=== PATIENT | male | born 1960 | race African-American/Black ===

== ENCOUNTER 2017-11-14 06:30 | Inpatient (IN) | payer SELFPAY ==
[~2017-11-14] VITALS: Ht 172.7 cm; Wt 83.0 kg
[2017-11-14] VITALS (56 sets, daily range): BP systolic 134–191; BP diastolic 67–155
[2017-11-14] MEDS ORDERED: METHYLPREDNISOLONE SOD SUCC 125 MG/2 ML VIAL IV STA (06:41)
[2017-11-14] MEDS ORDERED: ALBUTEROL (0.083%) 2.5MG/3ML NEB HHN STA (06:41)
[2017-11-14] MEDS ORDERED: IPRATROPIUM BROMIDE (0.02%) 0.5MG/2.5ML NEB HHN STA (06:41)
[2017-11-14] MEDS ORDERED: MAGNESIUM 2 G PREMIX 50 ML IV STA (06:41)
[2017-11-14] MEDS ORDERED: FUROSEMIDE 20MG/2ML VIAL IVP ONE ×2 (06:45→07:15)
[2017-11-14] MEDS ORDERED: METHYLPREDNISOLONE SOD SUCC 125 MG/2 ML VIAL IV ONE (07:15)
[2017-11-14 07:34] LABS: INR 1.5; PARTIAL THROMBOPLASTIN TIME 25.7 sec (23.4-31.0); PROTHROMBIN TIME 15.1 sec (9.4-11.6)
[2017-11-14 07:42] LABS: CHLORIDE 104 mEq/L (98-107); ETHANOL BLOOD < 10 mg/dL
[2017-11-14 07:48] LABS: HEMATOCRIT. 35.5 % (42.0-52.0); HEMOGLOBIN. 10.6 g/dL (14.0-18.0); MEAN CORPUSCULAR HEMOGLOBIN 27.1 pg (28.0-32.0); MEAN PLATELET VOLUME 7.9 fl (7.4-10.4); PLATELET 488 x1000/uL (130-400); RED BLOOD CELL COUNT 3.91 mill/uL (4.7-6.1); RED CELL DISTRIBUTION WIDTH 20.1 % (11.6-14.6); TROPONIN I 0.11 ng/mL (0.00-0.04)
[2017-11-14] MEDS ORDERED: DEXTROSE 50% WATER 50ML SYRINGE IV ONE ×2 (07:54→08:00)
[2017-11-14] MEDS ORDERED: LEVOFLOXACIN 750MG PREMIX 150 ML IV ONE (08:00)
[2017-11-14 08:11] LABS: BG BASE EXCESS -13.6 mmol/L (-2.0-2.0); BG CARBOXYHEMOGLOBIN 0.8 % (0.5-1.5); BG DEOXYHEMOGLOBIN 0.9 % (0.0-5.0); BG FRACTION INSPIRED OXYGEN 40; BG HCO3 ACT 13.3 mmol/L (22.0-26.0); BG METHEMOGLOBIN 0.3 % (0.0-1.5); BG OXYGEN SATURATION 99.1 % (92.0-98.5); BG PCO2 34.4 mmHg (35.0-45.0); BG PH 7.204 (7.350-7.450); BG PO2 219.8 mmHg (75.0-100.0); BG SAMPLE SITE RIGHT RADIAL; BG TOTAL HEMOGLOBIN 10.6 g/dL (12.0-18.0); BG VENT MODE MASK - BIPAP
[2017-11-14 08:15] LABS: NUCLEATED RED BLOOD CELLS 1 /100 WBC
[2017-11-14 08:16] LABS: PLATELET ESTIMATE INCREASED
[2017-11-14 08:35] LABS: CLARITY URINE CLEAR (CLEAR); COLOR URINE YELLOW (YELLOW); KETONES URINE NEGATIVE (NEGATIVE); LEUKOCYTE ESTERASE URINE NEGATIVE (NEGATIVE); NITRITE URINE NEGATIVE (NEGATIVE); OCCULT BLOOD URINE TRACE (NEGATIVE); PROTEIN URINE 2+ (NEGATIVE); SPECIFIC GRAVITY URINE 1.015 (1.005-1.030)
[2017-11-14 09:13] LABS: *AMPHETAMINES SCREEN URINE NEGATIVE (NEGATIVE); *BARBITURATES SCREEN URINE NEGATIVE (NEGATIVE); *BENZODIAZEPINES SCREEN URINE NEGATIVE (NEGATIVE); *COCAINE SCREEN URINE NEGATIVE (NEGATIVE); CANNABINOID URINE SCREEN NEGATIVE (NEGATIVE); METHADONE URINE SCREEN NEGATIVE (NEGATIVE); OPIATES URINE SCREEN NEGATIVE (NEGATIVE); PHENCYCLIDINE URINE SCREEN NEGATIVE (NEGATIVE)
[2017-11-14] MEDS ORDERED: SODIUM BICARBONATE 8.4% 1 MEQ/ML 50ML SYR IV ONE (09:15)
[2017-11-14] MEDS ORDERED: METRONIDAZOLE 500 MG PREMIX 100 ML IV ONE (09:15)
[2017-11-14] MEDS ORDERED: IPRATROPIUM/ALBUTEROL 0.5-3(2.5)MG/3ML NEB HHN PRN (09:30)
[2017-11-14] MEDS ORDERED: DEXTROSE 50% WATER 50ML SYRINGE IV PRN ×2 (09:30)
[2017-11-14] MEDS ORDERED: DEXT 5%/0.45% NACL 1000ML 1,000 ML IV SCH ×2 (09:49→19:00)
[2017-11-14] MEDS ORDERED: KETOROLAC 30MG/ML VIAL IV PRN (10:00)
[2017-11-14] MEDS ORDERED: ENOXAPARIN 40MG/0.4ML SYR SUBCUT SCH (10:00)
[2017-11-14] MEDS ORDERED: IPRATROPIUM/ALBUTEROL 0.5-3(2.5)MG/3ML NEB INH PRN (10:00)
[2017-11-14] MEDS ORDERED: ONDANSETRON HCL 4MG/2ML VIAL IV PRN (10:00)
[2017-11-14] MEDS ORDERED: NA PHOS,M-B/NA PHOS,DI-BA ENEMA 118ML PR PRN (10:00)
[2017-11-14] MEDS ORDERED: VANCOMYCIN 1 G PREMIX 200 ML IV SCH (10:00)
[2017-11-14] MEDS ORDERED: ACETAMINOPHEN 325MG TABLET PO PRN (10:00)
[2017-11-14] MEDS ORDERED: MAGNESIUM/ALUMINUM HYDROXIDE/SIMETHICONE 30ML UDC PO PRN (10:00)
[2017-11-14] MEDS ORDERED: DOCUSATE SODIUM 100MG CAPSULE PO PRN (10:00)
[2017-11-14] MEDS ORDERED: LORAZEPAM 0.5MG TABLET PO PRN (10:15)
[2017-11-14] MEDS ORDERED: DEXTROSE 10% WATER 500 ML IV ONE (10:30)
[2017-11-14] MEDS: PANTOPRAZOLE SODIUM 40 MG/VIAL IV SCH (10:34)
[2017-11-14] MEDS: ENOXAPARIN 30MG/0.3ML SYR SUBCUT SCH ×2 (10:34→20:50)
[2017-11-14] MEDS: NITROGLYCERIN 50MG PREMIX 250 ML IV PRN ×2 (10:35→15:36)
[2017-11-14] MEDS ORDERED: MVI, ADULT NO.1 10 ML, FOLIC ACID 1 MG, THIAMINE HCL 100 MG in SODIUM CHLORIDE 0.9% 1,0... IV SCH ×4 (11:00)
[2017-11-14] MEDS ORDERED: VANCOMYCIN 2,000 MG in SODIUM CHLORIDE 0.9% 500 ML IV SCH (11:30)
[2017-11-14 11:59] LABS: AMMONIA 51 uMol/L (<32)
[2017-11-14] MEDS ORDERED: IPRATROPIUM/ALBUTEROL 0.5-3(2.5)MG/3ML NEB HHN SCH (12:00)
[2017-11-14 12:18] LABS: HEPATITIS B SURFACE ANTIGEN NEGATIVE
[2017-11-14 12:26] LABS: BG BASE EXCESS -4.5 mmol/L (-2.0-2.0); BG BILEVEL POS AIRWAY PRESSURE 15/5; BG CARBOXYHEMOGLOBIN 0.6 % (0.5-1.5); BG DEOXYHEMOGLOBIN 4.9 % (0.0-5.0); BG HCO3 ACT 19.7 mmol/L (22.0-26.0); BG METHEMOGLOBIN 0.3 % (0.0-1.5); BG OXYGEN SATURATION 95.1 % (92.0-98.5); BG OXYHEMOGLOBIN 94.2 % (94.0-97.0); BG PCO2 33.2 mmHg (35.0-45.0); BG PH 7.391 (7.350-7.450); BG PO2 83.4 mmHg (75.0-100.0); BG SAMPLE SITE RIGHT RADIAL; BG TOTAL HEMOGLOBIN 10.3 g/dL (12.0-18.0); BG VENT MODE MASK - BIPAP; BG VENT RATE 12 set
[2017-11-14] MEDS: PIPERACILLIN/TAZ 3.375G PREMIX 50 ML IV SCH ×2 (12:30→18:37)
[2017-11-14 12:46] LABS: HEPATITIS B CORE AB IGM NEGATIVE
[2017-11-14 12:47] LABS: HEPATITIS A AB IGM NEGATIVE (NEGATIVE)
[2017-11-14] MEDS: BLOOD SUGAR DIAGNOSTIC STRIP TEST SCH ×3 (12:50→21:12)
[2017-11-14] MEDS ORDERED: LIDOCAINE HCL/PF 1% 2ML VIAL ONE (13:01)
[2017-11-14] MEDS: ENALAPRIL 1.25MG/ML VIAL 1ML IV SCH ×3 (13:16→23:35)
[2017-11-14] MEDS: INSULIN LISPRO 100 UNITS/ML SUBCUT SCH ×3 (13:16→21:16)
[2017-11-14] MEDS: LABETALOL 5MG/ML SYR 20 MG/4 ML SYRINGE IV SCH ×2 (13:38→23:35)
[2017-11-14] MEDS ORDERED: CLONIDINE HCL 0.1MG/24HR PATCH TD SCH (14:00)
[2017-11-14] MEDS ORDERED: SPIR25TA4 PO (14:27)
[2017-11-14] MEDS ORDERED: METF500T4 PO (14:27)
[2017-11-14] MEDS ORDERED: CARV25TA47 PO (14:27)
[2017-11-14] MEDS ORDERED: ESOM40CA PO (14:27)
[2017-11-14] MEDS ORDERED: MULT-1146 PO (14:27)
[2017-11-14] MEDS ORDERED: FOLI-43 PO (14:27)
[2017-11-14] MEDS ORDERED: FERR325T6 PO (14:27)
[2017-11-14] MEDS ORDERED: POTA10TA15 PO (14:27)
[2017-11-14] MEDS ORDERED: DIGO125T82 PO (14:27)
[2017-11-14] MEDS ORDERED: LISI10TA5 PO (14:27)
[2017-11-14] MEDS: IPRATROPIUM/ALBUTEROL 0.5-3(2.5)MG/3ML NEB HHN SCH ×4 (14:41→23:44)
[2017-11-14] MEDS ORDERED: HYDRALAZINE 20MG/ML VIAL IV PRN (14:45)
[2017-11-14] MEDS: CLONIDINE 0.1MG TABLET PO PRN (15:36)
[2017-11-14 16:36] LABS: CREATINE KINASE MB FRACTION 4.2 ng/mL (0.5-3.6); TROPONIN I 0.11 ng/mL (0.00-0.04)
[2017-11-14] MEDS: FUROSEMIDE 40MG/4ML VIAL IVP SCH (17:45)
[2017-11-14 18:34] LABS: TOTAL IRON BINDING CAPACITY 410 ug/dL (250-450)
[2017-11-14 20:20] LABS: VITAMIN B12 SERUM 1694 pg/mL (211-911)
[2017-11-14 20:21] LABS: FOLIC ACID (FOLATE) SERUM > 20.00 ng/mL (>5.38)
[2017-11-14] MEDS ORDERED: VANCOMYCIN 1250MG in DEXTROSE 5% WATER 250ML IV SCH (23:00)
[2017-11-14 23:19] LABS: CREATINE KINASE MB FRACTION 3.7 ng/mL (0.5-3.6); TROPONIN I 0.12 ng/mL (0.00-0.04)
[2017-11-15] VITALS (52 sets, daily range): BP systolic 112–159; BP diastolic 67–102
[2017-11-15] MEDS: PIPERACILLIN/TAZ 3.375G PREMIX 50 ML IV SCH ×3 (02:32→18:11)
[2017-11-15] MEDS: IPRATROPIUM/ALBUTEROL 0.5-3(2.5)MG/3ML NEB HHN SCH ×5 (04:11→20:36)
[2017-11-15] MEDS: ENALAPRIL 1.25MG/ML VIAL 1ML IV SCH ×2 (05:38→12:43)
[2017-11-15] MEDS: LABETALOL 5MG/ML SYR 20 MG/4 ML SYRINGE IV SCH ×3 (05:38→12:43)
[2017-11-15] MEDS: BLOOD SUGAR DIAGNOSTIC STRIP TEST SCH ×4 (07:50→21:08)
[2017-11-15] MEDS: FUROSEMIDE 40MG/4ML VIAL IVP SCH ×2 (08:16→17:45)
[2017-11-15] MEDS: PANTOPRAZOLE SODIUM 40 MG/VIAL IV SCH (08:16)
[2017-11-15] MEDS: ENOXAPARIN 30MG/0.3ML SYR SUBCUT SCH ×2 (08:17→20:50)
[2017-11-15] MEDS: INSULIN LISPRO 100 UNITS/ML SUBCUT SCH ×4 (08:18→21:12)
[2017-11-15] MEDS ORDERED: LEVOFLOXACIN 500MG PREMIX 100 ML IV SCH (09:00)
[2017-11-15 09:17] LABS: BG BASE EXCESS 0.9 mmol/L (-2.0-2.0); BG DEOXYHEMOGLOBIN 2.3 % (0.0-5.0); BG FRACTION INSPIRED OXYGEN 28; BG HCO3 ACT 24.5 mmol/L (22.0-26.0); BG METHEMOGLOBIN 0.2 % (0.0-1.5); BG OXYGEN SATURATION 97.7 % (92.0-98.5); BG OXYHEMOGLOBIN 96.5 % (94.0-97.0); BG PCO2 34.9 mmHg (35.0-45.0); BG PH 7.464 (7.350-7.450); BG PO2 106.5 mmHg (75.0-100.0); BG SAMPLE SITE RIGHT RADIAL; BG TOTAL HEMOGLOBIN 9.9 g/dL (12.0-18.0); BG VENT MODE MASK - VENTI
[2017-11-15] MEDS: VANCOMYCIN 1500MG in DEXTROSE 5% WATER 250ML IV SCH ×2 (10:13→20:51)
[2017-11-15] MEDS: LISINOPRIL 20MG TABLET PO SCH (20:50)
[2017-11-15] MEDS: METOPROLOL TARTRATE 25MG TABLET PO SCH (20:51)
[2017-11-16] VITALS (26 sets, daily range): BP systolic 113–172; BP diastolic 34–115
[2017-11-16] MEDS: IPRATROPIUM/ALBUTEROL 0.5-3(2.5)MG/3ML NEB HHN SCH ×6 (01:05→20:43)
[2017-11-16] MEDS: PIPERACILLIN/TAZ 3.375G PREMIX 50 ML IV SCH ×3 (02:19→18:17)
[2017-11-16 06:42] LABS: BASOPHILS % 0.1 % (0.0-2.0); HEMATOCRIT. 28.5 % (42.0-52.0); HEMOGLOBIN. 9.2 g/dL (14.0-18.0); LYMPHOCYTES % 10.1 % (20.0-50.0); MEAN CORPUSCULAR HEMOGLOBIN 27.4 pg (28.0-32.0); MEAN CORPUSCULAR VOLUME 85.5 fL (80.0-94.0); MEAN PLATELET VOLUME 7.9 fl (7.4-10.4); MONOCYTES % 12.3 % (2.0-8.0); NEUTROPHILS % 77.5 % (40.0-76.0); PLATELET 297 x1000/uL (130-400); RED BLOOD CELL COUNT 3.34 mill/uL (4.7-6.1); RED CELL DISTRIBUTION WIDTH 19.7 % (11.6-14.6)
[2017-11-16 07:19] LABS: CHLORIDE 99 mEq/L (98-107)
[2017-11-16] MEDS: BLOOD SUGAR DIAGNOSTIC STRIP TEST SCH ×4 (08:09→21:59)
[2017-11-16] MEDS: FUROSEMIDE 40MG/4ML VIAL IVP SCH ×2 (08:37→17:37)
[2017-11-16] MEDS: PANTOPRAZOLE SODIUM 40 MG/VIAL IV SCH (08:37)
[2017-11-16] MEDS: FOLIC ACID 1MG TABLET PO SCH (08:38)
[2017-11-16] MEDS: MULTIVITAMINS,THER W-MINERALS TABLET PO SCH (08:38)
[2017-11-16] MEDS: METOPROLOL TARTRATE 25MG TABLET PO SCH ×2 (08:38→21:10)
[2017-11-16] MEDS: THIAMINE HCL 100MG TABLET PO SCH (08:38)
[2017-11-16] MEDS: LISINOPRIL 20MG TABLET PO SCH ×2 (08:38→21:10)
[2017-11-16] MEDS: ENOXAPARIN 30MG/0.3ML SYR SUBCUT SCH ×2 (08:39→21:10)
[2017-11-16] MEDS: VANCOMYCIN 1500MG in DEXTROSE 5% WATER 250ML IV SCH (08:39)
[2017-11-16] MEDS: INSULIN LISPRO 100 UNITS/ML SUBCUT SCH ×4 (08:40→21:11)
[2017-11-16] MEDS: CLONIDINE 0.1MG TABLET PO PRN (08:50)
[2017-11-16] MEDS ORDERED: POTASSIUM CHLORIDE 20MEQ TABLET SR PO NR (09:30)
[2017-11-16 09:44] LABS: AMMONIA 36 uMol/L (<32)
[2017-11-16] MEDS: DILTIAZEM HCL 30MG TABLET PO SCH ×3 (15:00→23:46)
[2017-11-16] MEDS: VANCOMYCIN 1 G PREMIX 200 ML IV SCH (21:09)
[2017-11-16] MEDS: GUAIFENESIN 200MG/10ML SUGAR FREE UDC PO PRN (22:02)
[2017-11-17] VITALS (26 sets, daily range): BP systolic 104–159; BP diastolic 18–109
[2017-11-17] MEDS: IPRATROPIUM/ALBUTEROL 0.5-3(2.5)MG/3ML NEB HHN SCH ×6 (00:08→21:02)
[2017-11-17] MEDS: PIPERACILLIN/TAZ 3.375G PREMIX 50 ML IV SCH ×3 (03:15→18:14)
[2017-11-17] MEDS: DILTIAZEM HCL 30MG TABLET PO SCH ×2 (05:34→11:54)
[2017-11-17] MEDS: BLOOD SUGAR DIAGNOSTIC STRIP TEST SCH ×4 (07:23→20:42)
[2017-11-17] MEDS: FUROSEMIDE 40MG/4ML VIAL IVP SCH ×2 (07:32→17:20)
[2017-11-17] MEDS: GUAIFENESIN 200MG/10ML SUGAR FREE UDC PO PRN ×2 (07:33→20:43)
[2017-11-17] MEDS: INSULIN LISPRO 100 UNITS/ML SUBCUT SCH ×4 (07:48→20:41)
[2017-11-17] MEDS: VANCOMYCIN 1 G PREMIX 200 ML IV SCH ×2 (07:52→20:42)
[2017-11-17] MEDS: ENOXAPARIN 30MG/0.3ML SYR SUBCUT SCH ×2 (08:11→20:42)
[2017-11-17] MEDS: METOPROLOL TARTRATE 25MG TABLET PO SCH ×2 (08:11→20:43)
[2017-11-17] MEDS: THIAMINE HCL 100MG TABLET PO SCH (08:11)
[2017-11-17] MEDS: PANTOPRAZOLE SODIUM 40 MG/VIAL IV SCH (08:11)
[2017-11-17] MEDS: FOLIC ACID 1MG TABLET PO SCH (08:11)
[2017-11-17] MEDS: MULTIVITAMINS,THER W-MINERALS TABLET PO SCH (08:12)
[2017-11-17] MEDS: LISINOPRIL 20MG TABLET PO SCH ×2 (08:12→20:42)
[2017-11-17 10:18] LABS: AMMONIA 34 uMol/L (<32)
[2017-11-17 10:24] LABS: CHLORIDE 97 mEq/L (98-107)
[2017-11-17] MEDS: POTASSIUM CHLORIDE 20MEQ TABLET SR PO SCH (13:27)
[2017-11-17] MEDS: DILTIAZEM HCL 240MG ER (24HR) PO SCH (14:43)
[2017-11-17] MEDS: INSULIN GLARGINE UD 100 UNITS/ML SYR SUBCUT SCH (14:44)
[2017-11-18] VITALS (17 sets, daily range): BP systolic 94–159; BP diastolic 67–104
[2017-11-18] MEDS: IPRATROPIUM/ALBUTEROL 0.5-3(2.5)MG/3ML NEB HHN SCH ×6 (01:00→20:20)
[2017-11-18] MEDS: PIPERACILLIN/TAZ 3.375G PREMIX 50 ML IV SCH ×3 (03:59→18:02)
[2017-11-18 05:46] LABS: BASOPHILS % 0.4 % (0.0-2.0); EOSINOPHILS % 0.2 % (0.0-5.0); HEMATOCRIT. 28.3 % (42.0-52.0); HEMOGLOBIN. 9.1 g/dL (14.0-18.0); LYMPHOCYTES % 32.9 % (20.0-50.0); MEAN CORPUSCULAR HEMOGLOBIN 27.1 pg (28.0-32.0); MEAN CORPUSCULAR VOLUME 84.5 fL (80.0-94.0); MEAN PLATELET VOLUME 7.6 fl (7.4-10.4); MONOCYTES % 11.7 % (2.0-8.0); NEUTROPHILS % 54.8 % (40.0-76.0); PLATELET 210 x1000/uL (130-400); RED BLOOD CELL COUNT 3.35 mill/uL (4.7-6.1); RED CELL DISTRIBUTION WIDTH 19.5 % (11.6-14.6)
[2017-11-18 05:55] LABS: CHLORIDE 97 mEq/L (98-107)
[2017-11-18] MEDS ORDERED: POTASSIUM CHLORIDE 20MEQ TABLET SR PO NR ×2 (07:30→12:00)
[2017-11-18] MEDS: BLOOD SUGAR DIAGNOSTIC STRIP TEST SCH ×4 (07:50→21:00)
[2017-11-18] MEDS: INSULIN LISPRO 100 UNITS/ML SUBCUT SCH ×4 (08:20→21:22)
[2017-11-18] MEDS: FOLIC ACID 1MG TABLET PO SCH (08:29)
[2017-11-18] MEDS: PANTOPRAZOLE SODIUM 40 MG/VIAL IV SCH (08:29)
[2017-11-18] MEDS: FUROSEMIDE 40MG/4ML VIAL IVP SCH ×2 (08:29→17:08)
[2017-11-18] MEDS: THIAMINE HCL 100MG TABLET PO SCH (08:29)
[2017-11-18] MEDS: DILTIAZEM HCL 240MG ER (24HR) PO SCH (08:29)
[2017-11-18] MEDS: VANCOMYCIN 1 G PREMIX 200 ML IV SCH ×2 (08:29→21:13)
[2017-11-18] MEDS ORDERED: KCL 20MEQ/100ML PREMIX 100 ML IV NR (08:30)
[2017-11-18] MEDS: METOPROLOL TARTRATE 25MG TABLET PO SCH ×2 (08:30→21:21)
[2017-11-18] MEDS: MULTIVITAMINS,THER W-MINERALS TABLET PO SCH (08:30)
[2017-11-18] MEDS: LISINOPRIL 20MG TABLET PO SCH ×2 (08:30→21:21)
[2017-11-18] MEDS: POTASSIUM CHLORIDE 20MEQ TABLET SR PO SCH (08:30)
[2017-11-18] MEDS: ENOXAPARIN 30MG/0.3ML SYR SUBCUT SCH ×2 (08:32→21:13)
[2017-11-18 09:01] LABS: PHOSPHORUS 3.1 mg/dL (2.5-4.9)
[2017-11-18] MEDS: INSULIN GLARGINE UD 100 UNITS/ML SYR SUBCUT SCH (12:29)
[2017-11-18] MEDS ORDERED: MAGNESIUM 2 G PREMIX 50 ML IV SCH (15:00)
[2017-11-18] MEDS ORDERED: DILT240C91 PO (15:45)
[2017-11-18] MEDS ORDERED: FURO-151 PO (15:47)
[2017-11-18] MEDS ORDERED: LISI-604 PO (15:47)
[2017-11-18] MEDS ORDERED: CLIN300C11 PO (15:50)
[2017-11-18] MEDS ORDERED: LANTUSUD SUBCUT (15:51)
[2017-11-18] MEDS ORDERED: INSASP SUBCUT (15:52)
[2017-11-18] MEDS ORDERED: ESOM40CA PO (16:13)
[2017-11-19] VITALS: BP 109/77
[2017-11-19] MEDS: IPRATROPIUM/ALBUTEROL 0.5-3(2.5)MG/3ML NEB HHN SCH ×4 (00:19→11:48)
[2017-11-19] MEDS: PIPERACILLIN/TAZ 3.375G PREMIX 50 ML IV SCH ×2 (03:44→11:06)
[2017-11-19 04:00] VITALS: BP 130/68
[2017-11-19] MEDS: BLOOD SUGAR DIAGNOSTIC STRIP TEST SCH ×2 (06:06→11:13)
[2017-11-19] MEDS: INSULIN LISPRO 100 UNITS/ML SUBCUT SCH ×2 (06:06→12:44)
[2017-11-19] MEDS: FUROSEMIDE 40MG/4ML VIAL IVP SCH (06:28)
[2017-11-19 07:37] VITALS: BP 150/107
[2017-11-19] MEDS: DILTIAZEM HCL 240MG ER (24HR) PO SCH (08:17)
[2017-11-19] MEDS: PANTOPRAZOLE SODIUM 40 MG/VIAL IV SCH (08:17)
[2017-11-19] MEDS: THIAMINE HCL 100MG TABLET PO SCH (08:17)
[2017-11-19] MEDS: FOLIC ACID 1MG TABLET PO SCH (08:17)
[2017-11-19] MEDS: POTASSIUM CHLORIDE 20MEQ TABLET SR PO SCH (08:17)
[2017-11-19] MEDS: MULTIVITAMINS,THER W-MINERALS TABLET PO SCH (08:18)
[2017-11-19] MEDS: LISINOPRIL 20MG TABLET PO SCH (08:18)
[2017-11-19] MEDS: METOPROLOL TARTRATE 25MG TABLET PO SCH (08:18)
[2017-11-19] MEDS: VANCOMYCIN 1 G PREMIX 200 ML IV SCH (08:18)
[2017-11-19] MEDS: ENOXAPARIN 30MG/0.3ML SYR SUBCUT SCH (08:18)
[2017-11-19] MEDS: INSULIN GLARGINE UD 100 UNITS/ML SYR SUBCUT SCH (11:08)
[2017-11-19 11:53] VITALS: BP 101/71
== END 2017-11-19 15:15 | disposition home or self-care (01) | DRG 720 ==
LOC: ER 06:30 → CVICU 07:54 → EDBEDREQ 07:58 → EDBEDREQSVC 07:58 → ENRESERV 08:42 → 8WST 11-18 16:41
PROVIDERS: ADMIT Internal Medicine; ATTEND Internal Medicine
PROC: 02HV33Z Insertion of Infusion Device into Superior Vena Cava, Percutaneous Approach (ICD-10-PCS; principal; 2017-11-14)
PROC: B548ZZA Ultrasonography of Superior Vena Cava, Guidance (ICD-10-PCS; 2017-11-14)
PROC: 5A09357 Assistance with Respiratory Ventilation, Less than 24 Consecutive Hours, Continuous Positive Airway Pressure (ICD-10-PCS; 2017-11-14)
DX: A41.9 Sepsis, unspecified organism (principal); J96.00 Acute respiratory failure, unspecified whether with hypoxia or hypercapnia; E43 Unspecified severe protein-calorie malnutrition; I50.23 Acute on chronic systolic (congestive) heart failure; E87.2 Acidosis; G92 Toxic encephalopathy; D68.9 Coagulation defect, unspecified; N17.9 Acute kidney failure, unspecified; E11.649 Type 2 diabetes mellitus with hypoglycemia without coma; I11.0 Hypertensive heart disease with heart failure; D64.9 Anemia, unspecified; F17.210 Nicotine dependence, cigarettes, uncomplicated; I16.1 Hypertensive emergency; R17 Unspecified jaundice; R18.8 Other ascites; Z79.82 Long term (current) use of aspirin
CPT/HCPCS: 36415; 36569; 36600; 71045; 76705; 76937; 78227; 80048; 80053; 80061; 80076; 80202; 80305; 81003; 82140; 82248; 82375; 82550; 82553; 82607; 82728; 82746; 82805; 82962; 83036; 83540; 83550; 83605; 83690; 83735; 83880; 84100; 84443; 84484; 85025; 85379; 85610; 85730; 86705; 86709; 86803; 87040; 87086; 87186; 87340; 93005; 93970; 94640; 94644; 94660; 96365; 96375; 96376; 97116; 97162; 97166; 97530; 97535; 99291; A9537; C1725; C9113; G0482; J0360; J1650; J1815; J1940; J1956; J2543; J2930; J3370; J3411; J3475; J3480; J3490; J7030; J7040; J7050; J7060; J7611; J7620; A4315